=== PATIENT | male | born 1945 | race Caucasian/White ===

== ENCOUNTER 2020-05-14 09:37 | Outpatient (CLI) | payer MEDICARE, OTHER | END 2020-05-14 09:38 | disposition home or self-care (01) | LOC: NM 09:37 | PROVIDERS: ATTEND Psychiatry & Neurology Neurology | DX: G20 Parkinson's disease (principal) | CPT/HCPCS: 78803; A9584 ==

== ENCOUNTER 2021-09-01 09:20 | Outpatient (CLI) | payer MEDICARE, OTHER ==
[2021-09-01 10:33] LABS: Hemoglobin 14.7 g/dL (13.5-17.5); Mean Corpuscular HGB CONC 33.4 g/dL (32.0-36.0); Mean Corpuscular Hemoglobin 31.7 pg (27.0-33.0); Mean Corpuscular Volume 94.8 fl (81.2-95.1); Mean Platelet Volume 9.3 fl (7.4-10.4); Platelet Count 210 10x3/uL (150-450); RBC Distribution Width 12.2 % (11.5-14.5); Red Blood Cell (RBC) Count 4.64 10x6/uL (4.32-5.72); White Blood Cell (WBC) Count 7.7 10x3/uL (3.5-10.5)
[2021-09-01 10:42] LABS: Anion Gap 14 mmol/L (10-20); BUN (Urea Nitrogen) 16 mg/dL (8.4-25.7); Calc. Creatinine Clearance 0 mL/min (70-130); Calcium 9.4 mg/dL (7.8-10.44); Carbon Dioxide 27 mmol/L (23-31); Chloride 104 mmol/L (98-107); Estimated GFR 76; Glucose 98 mg/dL (83-110); Potassium 4.3 mmol/L (3.5-5.1); Sodium 141 mmol/L (136-145)
[2021-09-01 10:48] LABS: PTT 27.2 sec (22.0-33.0)
[2021-09-01 10:57] LABS: Bilirubin Neg (Negative); Blood, Urine 50 (Negative); Clarity Cloudy (Clear); Glucose, Urine (Dipstick) Normal (Negative); Ketone, Urine Negative (Negative); Leukocyte 500 (Negative); Nitrite Negative (Negative); Protein, Urine (Dipstick) 30 mg/dl (Neg-Trace); Specific Gravity, Urine 1.015 (1.002-1.036); Urobilinogen Normal mg/dL (Less than 2)
[2021-09-01 11:27] LABS: Squamous Epithelial 0-3 HPF (0-3); WBC/HPF 21-50 HPF (0-3)
[2021-09-01 11:28] LABS: Bacteria/HPF 2+ HPF (None Seen)
== END 2021-09-01 09:21 | disposition home or self-care (01) ==
LOC: LABBT 09:20
PROVIDERS: ATTEND Urology
DX: Z01.818 Encounter for other preprocedural examination (principal); N20.0 Calculus of kidney; N35.916 Unspecified urethral stricture, male, overlapping sites; K59.09 Other constipation; N32.81 Overactive bladder; G20 Parkinson's disease; Z20.822 Contact with and (suspected) exposure to COVID-19; N39.41 Urge incontinence; N47.2 Paraphimosis
CPT/HCPCS: 80048; 81001; 85027; 85610; 85730; 87077; 87086; 87186; 87811; 93005; 93010

== ENCOUNTER 2021-09-03 08:17 | Day surgery (SDC) | payer MEDICARE, OTHER ==
[2021-09-02 10:58] VITALS: BMI 31.4
[2021-09-03] MEDS ORDERED: Fentanyl 100 MCG/2 ML VIAL ONE (09:45)
[2021-09-03] MEDS ORDERED: SUGAMMADEX SODIUM 200 MG/2 ML VIAL ONE (09:45)
[2021-09-03] MEDS ORDERED: Iopamidol 30 ML ONE (09:47)
[2021-09-03] MEDS ORDERED: Levofloxacin 500 mg/D5W 100 ml Premix Bag ONE (09:51)
[2021-09-03] MEDS ORDERED: Dexamethasone 20 MG/5 ML VIAL ONE (10:02)
[2021-09-03] MEDS ORDERED: Lidocaine 1% PF 5 ML VIAL ONE (10:02)
[2021-09-03] MEDS ORDERED: Ondansetron PF 4 MG/2 ML Vial ONE (10:02)
[2021-09-03] MEDS ORDERED: PROPOFOL 200 MG/20 ML VIAL ONE (10:02)
[2021-09-03] MEDS ORDERED: Rocuronium Bromide 10 MG/ML (10ML VIAL) ONE (10:02)
[2021-09-03] MEDS ORDERED: PACU-Morphine 4MG/ML VIAL SLOW IVP PRN (10:23)
[2021-09-03] MEDS ORDERED: Promethazine HCl 25 MG/ML VIAL IVPB PRN (10:23)
[2021-09-03] MEDS ORDERED: B & O ONE (11:10)
== END 2021-09-03 15:58 ==
LOC: SDC 08:17
PROVIDERS: ATTEND Urology
PROC: 0TC38ZZ Extirpation of Matter from Right Kidney Pelvis, Via Natural or Artificial Opening Endoscopic (ICD-10-PCS; principal; 2021-09-03)
PROC: 0T768DZ Dilation of Right Ureter with Intraluminal Device, Via Natural or Artificial Opening Endoscopic (ICD-10-PCS; 2021-09-03)
DX: N20.0 Calculus of kidney (principal); N35.913 Unspecified membranous urethral stricture, male; G47.30 Sleep apnea, unspecified; G20 Parkinson's disease; F02.80 Dementia in other diseases classified elsewhere, unspecified severity, without behavioral disturbance, psychotic disturbance, mood disturbance, and anxiety; Z79.899 Other long term (current) drug therapy
CPT/HCPCS: 52356; 74420; 82365; C2617; 88300; J1956; J3010; Q9967

== ENCOUNTER 2022-05-01 21:12 | Observation (INO) | payer MEDICARE, OTHER ==
[2022-05-01 22:31] LABS: #Basophils 0.1 thou/uL (0.0-0.2); #Eosinphils 0.2 thou/uL (0.0-0.7); #Lymphocytes 1.9 thou/uL (1.20-3.40); #Monocytes 0.4 thou/uL (0.11-0.59); #Neutrophils 4.5 thou/uL (1.40-6.50); %Basophils 0.8 % (0.0-1.0); %Eosinophils 2.2 % (0.0-10.0); %Monocytes 5.4 % (0.0-10.0); %Neutrophils 64.5 % (42.0-75.0); Hemoglobin 13.9 g/dL (14.0-18.0); Mean Corpuscular HGB CONC 33.7 g/dL (32.0-36.0); Mean Corpuscular Hemoglobin 33.7 pg (27.0-31.0); Mean Corpuscular Volume 99.9 fl (78.0-98.0); Mean Platelet Volume 7.1 fL (7.4-10.4); Platelet Count 204 10x3/uL (130-400); RBC Distribution Width 11.4 % (11.5-14.5); Red Blood Cell (RBC) Count 4.14 mill/uL (4.70-6.10); White Blood Cell (WBC) Count 6.9 10x3/uL (4.8-10.8)
[2022-05-01 22:55] LABS: ALT (SGPT) 7 U/L (8-55); AST (SGOT) 18 U/L (5-34); Albumin 4.1 g/dL (3.4-4.8); Alkaline Phosphatase 71 U/L (40-110); Anion Gap 10 mmol/L (10-20); BUN (Urea Nitrogen) 19 mg/dL (8.4-25.7); Bilirubin, Total 0.6 mg/dL (0.2-1.2); Calc. Creatinine Clearance 0 mL/min (70-130); Calcium 9.1 mg/dL (7.8-10.44); Carbon Dioxide 31 mmol/L (23-31); Chloride 102 mmol/L (98-107); Estimated GFR 76; Globulin 2.5 g/dL (2.4-3.5); Glucose 121 mg/dL (83-110); Potassium 3.4 mmol/L (3.5-5.1); Protein, Total 6.6 g/dL (5.8-8.1); Sodium 140 mmol/L (136-145)
[2022-05-02] MEDS ORDERED: Ondansetron ODT 4 MG TAB PO PRN (01:03)
[2022-05-02] MEDS ORDERED: Acetaminophen 650 MG Suppository PR PRN (01:03)
[2022-05-02] MEDS ORDERED: Ondansetron PF 4 MG/2 ML Vial IVP PRN (01:03)
[2022-05-02] MEDS ORDERED: Nitroglycerin 0.4 MG TAB (25 Tab Bottle) SL PRN (01:03)
[2022-05-02] MEDS ORDERED: Acetaminophen 325 MG TAB PO PRN (01:03)
[2022-05-02 04:00] VITALS: BMI 29.5
[2022-05-02 06:07] LABS: #Eosinphils 0.2 thou/uL (0.0-0.7); #Lymphocytes 2.5 thou/uL (1.20-3.40); #Monocytes 0.4 thou/uL (0.11-0.59); #Neutrophils 3.4 thou/uL (1.40-6.50); %Basophils 0.1 % (0.0-1.0); %Lymphocytes 38.7 % (21.0-51.0); %Monocytes 5.5 % (0.0-10.0); %Neutrophils 52.6 % (42.0-75.0); Hemoglobin 13.4 g/dL (14.0-18.0); Mean Corpuscular HGB CONC 34.6 g/dL (32.0-36.0); Mean Corpuscular Hemoglobin 34.6 pg (27.0-31.0); Mean Corpuscular Volume 99.9 fl (78.0-98.0); Mean Platelet Volume 7.1 fL (7.4-10.4); Platelet Count 187 10x3/uL (130-400); RBC Distribution Width 11.3 % (11.5-14.5); Red Blood Cell (RBC) Count 3.87 mill/uL (4.70-6.10); White Blood Cell (WBC) Count 6.5 10x3/uL (4.8-10.8)
[2022-05-02 06:16] LABS: Anion Gap 13 mmol/L (10-20); BUN (Urea Nitrogen) 17 mg/dL (8.4-25.7); Calc. Creatinine Clearance 89 mL/min (70-130); Calcium 8.4 mg/dL (7.8-10.44); Carbon Dioxide 19 mmol/L (23-31); Chloride 109 mmol/L (98-107); Estimated GFR 91; Glucose 96 mg/dL (83-110); Magnesium 1.8 mg/dL (1.6-2.6); Potassium 3.2 mmol/L (3.5-5.1); Sodium 138 mmol/L (136-145)
[2022-05-02 06:21] LABS: Troponin I Less than 0.010 ng/mL (< 0.028)
[2022-05-02 07:00] LABS: Magnesium 1.9 mg/dL (1.6-2.6)
[2022-05-02] MEDS ORDERED: Potassium Chloride 20 MEQ TAB PO SCH (07:45)
[2022-05-02] MEDS ORDERED: Magnesium 2 GM/50 ML(in water) 2 GM in Premix Bag 1 BAG IVPB SCH (08:00)
[2022-05-02] MEDS ORDERED: Rasagiline Mesylate 1 MG Tab DT SCH (09:00)
[2022-05-02] MEDS ORDERED: Non-Formulary Item 1 EACH (Rasagiline Mesylate 1 MG Tab) PO SCH (09:00)
[2022-05-02] MEDS ORDERED: Iopamidol-370 76% 500 ML 1 ML ONE (09:31)
[2022-05-02] MEDS ORDERED: ADENOSINE 60 MG/20 ML VIAL ONE (09:42)
[2022-05-02] MEDS: Carbidopa/Levodopa 25-100 mg Tablet PO SCH ×5 (09:46→23:43)
[2022-05-02] MEDS: Entacapone 200 mg Tablet PO SCH ×5 (09:46→23:43)
[2022-05-02] MEDS: rOPINIRole HCl 2 MG TAB PO SCH ×3 (09:46→21:18)
[2022-05-02] MEDS: Aspirin Chewable 81 MG TAB PO SCH (09:47)
[2022-05-02 18:12] LABS: INR-International Normal Ratio 1.1; Prothrombin Time 14.9 sec (12.0-14.7)
[2022-05-02 18:13] LABS: PTT 40.4 sec (22.9-36.1)
[2022-05-02 18:14] LABS: D-Dimer Test 0.95 *mcg/mL (0.27-0.43)
[2022-05-02] MEDS ORDERED: clonazePAM 0.5 MG TAB PO SCH ×2 (21:00)
[2022-05-02] MEDS ORDERED: Donepezil HCl 5 MG TAB PO SCH (21:00)
[2022-05-03 04:48] LABS: #Eosinphils 0.2 thou/uL (0.0-0.7); #Monocytes 0.3 thou/uL (0.11-0.59); #Neutrophils 3.3 thou/uL (1.40-6.50); %Basophils 0.5 % (0.0-1.0); %Eosinophils 3.2 % (0.0-10.0); %Lymphocytes 34.7 % (21.0-51.0); %Monocytes 5.2 % (0.0-10.0); %Neutrophils 56.4 % (42.0-75.0); Hemoglobin 13.2 g/dL (14.0-18.0); Mean Corpuscular HGB CONC 34.8 g/dL (32.0-36.0); Mean Corpuscular Hemoglobin 34.7 pg (27.0-31.0); Mean Corpuscular Volume 99.7 fl (78.0-98.0); Mean Platelet Volume 7.1 fL (7.4-10.4); Platelet Count 175 10x3/uL (130-400); RBC Distribution Width 11.2 % (11.5-14.5); White Blood Cell (WBC) Count 5.8 10x3/uL (4.8-10.8)
[2022-05-03 05:17] LABS: Anion Gap 12 mmol/L (10-20); BUN (Urea Nitrogen) 16 mg/dL (8.4-25.7); Calc. Creatinine Clearance 83 mL/min (70-130); Calcium 8.3 mg/dL (7.8-10.44); Carbon Dioxide 25 mmol/L (23-31); Cardiac Risk 4.4 (Less than 4.5); Chloride 106 mmol/L (98-107); Cholesterol 123 mg/dl (< 200 Desired); Estimated GFR 89; Glucose 107 mg/dL (83-110); HDL Cholesterol 28 mg/dL (>60 Neg Risk); LDL Cholesterol, Calculated 77 mg/dL; Potassium 3.6 mmol/L (3.5-5.1); Sodium 139 mmol/L (136-145); Triglycerides 89 mg/dL (Less than 150)
[2022-05-03] MEDS: Carbidopa/Levodopa 25-100 mg Tablet PO SCH ×3 (09:07→16:55)
[2022-05-03] MEDS: Aspirin Chewable 81 MG TAB PO SCH (09:07)
[2022-05-03] MEDS: Entacapone 200 mg Tablet PO SCH ×3 (09:07→16:55)
[2022-05-03] MEDS: rOPINIRole HCl 2 MG TAB PO SCH ×2 (09:08→14:16)
[2022-05-03 12:33] VITALS: BP 128/70; TEMP 97.7
[2022-05-03] MEDS ORDERED: Atorvastatin Calcium 10 MG TAB PO SCH (21:00)
== END 2022-05-03 17:00 ==
LOC: ERS 21:12 → NEURO 05-02 00:10 → 2NO 05-02 16:19
PROVIDERS: ADMIT Internal Medicine; ATTEND Internal Medicine
DX: R07.89 Other chest pain (principal); E87.6 Hypokalemia; G20 Parkinson's disease; F02.80 Dementia in other diseases classified elsewhere, unspecified severity, without behavioral disturbance, psychotic disturbance, mood disturbance, and anxiety; I45.10 Unspecified right bundle-branch block; R94.39 Abnormal result of other cardiovascular function study; Z87.442 Personal history of urinary calculi; Z79.899 Other long term (current) drug therapy; Z20.822 Contact with and (suspected) exposure to COVID-19
CPT/HCPCS: 71045; 71275; 78452; 80048 ×2; 80053; 80061; 83690; 83735 ×2; 83880; 84484 ×2; 85025 ×3; 85379; 85610; 85730; 86850; 86900; 86901; 93005; 93017; 93970; 94760 ×2; 97116; A9500; U0003; U0005; 36415; 96372; 96374; G0378; J0153; J1650; J3475; Q9967

== ENCOUNTER 2022-11-08 09:26 | Emergency (ER) | payer MEDICARE, OTHER ==
[2022-11-08 10:36] LABS: #Eosinphils 0.3 thou/uL (0.0-0.7); #Monocytes 0.4 thou/uL (0.11-0.59); #Neutrophils 5.6 thou/uL (1.40-6.50); %Basophils 0.2 % (0.0-1.0); %Eosinophils 2.9 % (0.0-10.0); %Lymphocytes 26.8 % (21.0-51.0); %Monocytes 4.9 % (0.0-10.0); Hemoglobin 12.9 g/dL (14.0-18.0); Mean Corpuscular HGB CONC 33.9 g/dL (32.0-36.0); Mean Corpuscular Hemoglobin 33.1 pg (27.0-31.0); Mean Corpuscular Volume 97.4 fl (78.0-98.0); Mean Platelet Volume 9.3 fL (7.4-10.4); Platelet Count 192 10x3/uL (130-400); RBC Distribution Width 12.4 % (11.5-14.5); White Blood Cell (WBC) Count 8.6 10x3/uL (4.8-10.8)
[2022-11-08 10:59] LABS: ALT (SGPT) Less than 7 U/L (8-55); AST (SGOT) 14 U/L (5-34); Albumin 4.4 g/dL (3.4-4.8); Alkaline Phosphatase 86 U/L (40-110); Anion Gap 10 mmol/L (10-20); BUN (Urea Nitrogen) 19 mg/dL (8.4-25.7); Bilirubin, Total 0.6 mg/dL (0.2-1.2); Calc. Creatinine Clearance 0 mL/min (70-130); Calcium 9.5 mg/dL (7.8-10.44); Carbon Dioxide 32 mmol/L (23-31); Chloride 101 mmol/L (98-107); Estimated GFR 78; Globulin 2.5 g/dL (2.4-3.5); Glucose 109 mg/dL (83-110); Potassium 3.1 mmol/L (3.5-5.1); Protein, Total 6.9 g/dL (5.8-8.1); Sodium 140 mmol/L (136-145)
== END 2022-11-08 12:05 ==
LOC: ERS 09:26
DX: S06.0XAA Concussion with loss of consciousness status unknown, initial encounter (principal); W19.XXXA Unspecified fall, initial encounter
CPT/HCPCS: 36415; 70450; 71045; 72100; 80053; 85025; 93005

== ENCOUNTER 2022-12-24 12:52 | Emergency (ER) | payer OTHER ==
[2022-12-24] MEDS ORDERED: Acetaminophen 500 MG TAB ONE (15:23)
[2022-12-24 15:48] LABS: Bacteria/HPF None Seen HPF (None Seen); Bilirubin Negative (Negative); Blood, Urine Negative (Negative); CAUTI Indications for Culture Dysuria,urgency,freq; Clarity Clear (Clear); Glucose, Urine (Dipstick) Normal (Negative); Ketone, Urine Negative (Negative); Leukocyte Negative Leu/uL (Negative); Nitrite Negative (Negative); Protein, Urine (Dipstick) Negative (Neg-Trace); RBC/HPF 0-3 HPF (0-3); Specific Gravity, Urine 1.006 (1.002-1.036); Squamous Epithelial 0-3 HPF (0-3); Urobilinogen Normal mg/dL (Less than 2); WBC/HPF 0-3 HPF (0-3); pH, Urine 6.5 (5.0-9.0)
[2022-12-24 15:50] LABS: Urine Culture Reflex No No
[2022-12-24 16:12] LABS: SARS-CoV-2 NAA Rapid Test Not Detected (NotDetected)
== END 2022-12-24 16:30 | disposition home or self-care (01) ==
LOC: ERS 12:52
DX: R50.9 Fever, unspecified (principal); R51.9 Headache, unspecified; Z20.822 Contact with and (suspected) exposure to COVID-19
CPT/HCPCS: 70450; 72125; 81001

== ENCOUNTER 2023-05-01 13:34 | Inpatient (IN) | payer MEDICARE, MEDICAID ==
[2023-05-01] MEDS ORDERED: Meclizine HCl 25 MG TAB ONE (14:14)
[2023-05-01 14:41] LABS: #Eosinphils 0.1 thou/uL (0.0-0.7); #Monocytes 0.3 thou/uL (0.11-0.59); #Neutrophils 3.7 thou/uL (1.40-6.50); %Basophils 0.4 % (0.0-1.0); %Eosinophils 1.6 % (0.0-10.0); %Lymphocytes 24.4 % (21.0-51.0); %Monocytes 4.9 % (0.0-10.0); %Neutrophils 68.5 % (42.0-75.0); Hematocrit 32.6 % (42.0-52.0); Hemoglobin 11.2 g/dL (14.0-18.0); Mean Corpuscular HGB CONC 34.4 g/dL (32.0-36.0); Mean Corpuscular Hemoglobin 34.3 pg (27.0-31.0); Mean Corpuscular Volume 99.7 fl (78.0-98.0); Mean Platelet Volume 9.3 fL (7.4-10.4); Platelet Count 156 10x3/uL (130-400); RBC Distribution Width 12.4 % (11.5-14.5); Red Blood Cell (RBC) Count 3.27 mill/uL (4.70-6.10); White Blood Cell (WBC) Count 5.5 10x3/uL (4.8-10.8)
[2023-05-01 15:04] LABS: ALT (SGPT) Less than 7 U/L (8-55); AST (SGOT) 15 U/L (5-34); Albumin 3.7 g/dL (3.4-4.8); Alkaline Phosphatase 87 U/L (40-110); Anion Gap 10 mmol/L (10-20); BUN (Urea Nitrogen) 19 mg/dL (8.4-25.7); Bilirubin, Total 0.7 mg/dL (0.2-1.2); Calc. Creatinine Clearance 0 mL/min (70-130); Calcium 8.5 mg/dL (7.8-10.44); Carbon Dioxide 28 mmol/L (23-31); Chloride 103 mmol/L (98-107); Estimated GFR 76; Globulin 2.1 g/dL (2.4-3.5); Glucose 153 mg/dL (83-110); Potassium 3.2 mmol/L (3.5-5.1); Protein, Total 5.8 g/dL (5.8-8.1); Sodium 138 mmol/L (136-145)
[2023-05-01 15:09] LABS: Troponin I 0.015 ng/mL (< 0.028)
[2023-05-01 16:15] LABS: Bacteria/HPF None Seen HPF (None Seen); Bilirubin Negative (Negative); Blood, Urine Negative (Negative); CAUTI Indications for Culture Alt mental st,lethar; Clarity Clear (Clear); Glucose, Urine (Dipstick) Normal (Negative); Ketone, Urine Negative (Negative); Leukocyte Negative Leu/uL (Negative); Nitrite Negative (Negative); Protein, Urine (Dipstick) Negative (Neg-Trace); RBC/HPF None Seen HPF (0-3); Specific Gravity, Urine 1.017 (1.002-1.036); Squamous Epithelial 0-3 HPF (0-3); Urobilinogen Normal mg/dL (Less than 2); WBC/HPF 0-3 HPF (0-3); pH, Urine 6.5 (5.0-9.0)
[2023-05-01 16:17] LABS: Urine Culture Reflex No No
[2023-05-01] MEDS ORDERED: Ondansetron PF 4 MG/2 ML Vial IVP PRN (16:18)
[2023-05-01 17:39] LABS: CK (CPK) 144 U/L (30-200); Cardiac Risk 4.5 (Less than 4.5); Cholesterol 130 mg/dl (< 200 Desired); HDL Cholesterol 29 mg/dL (>60 Neg Risk); LDL Cholesterol, Calculated 78 mg/dL; Magnesium 2.2 mg/dL (1.6-2.6); Triglycerides 113 mg/dL (Less than 150)
[2023-05-01 18:31] LABS: Troponin I Less than 0.010 ng/mL (< 0.028)
[2023-05-01 20:33] VITALS: BMI 29.1
[2023-05-01] MEDS: Potassium Chloride 10 MEQ in Premix 1 BAG IVPB SCH (20:41)
[2023-05-01 21:48] LABS: Troponin I Less than 0.010 ng/mL (< 0.028)
[2023-05-01] MEDS: Sodium Chloride 0.9% 1,000 ML IV SCH (22:30)
[2023-05-01] MEDS: Famotidine/PF 20 mg/2ml Vial SLOW IVP SCH (22:30)
[2023-05-01] MEDS: Acetaminophen 325 MG TAB PO PRN (22:31)
[2023-05-02 05:38] LABS: #Eosinphils 0.2 thou/uL (0.0-0.7); #Monocytes 0.3 thou/uL (0.11-0.59); #Neutrophils 3.1 thou/uL (1.40-6.50); %Basophils 0.3 % (0.0-1.0); %Eosinophils 2.6 % (0.0-10.0); %Lymphocytes 37.1 % (21.0-51.0); %Monocytes 5.8 % (0.0-10.0); %Neutrophils 53.9 % (42.0-75.0); Hemoglobin 12.6 g/dL (14.0-18.0); Mean Corpuscular HGB CONC 34.1 g/dL (32.0-36.0); Mean Corpuscular Hemoglobin 33.6 pg (27.0-31.0); Mean Corpuscular Volume 98.7 fl (78.0-98.0); Mean Platelet Volume 9.8 fL (7.4-10.4); Platelet Count 188 10x3/uL (130-400); RBC Distribution Width 12.2 % (11.5-14.5); Red Blood Cell (RBC) Count 3.75 mill/uL (4.70-6.10); White Blood Cell (WBC) Count 5.8 10x3/uL (4.8-10.8)
[2023-05-02 06:29] LABS: ALT (SGPT) 18 U/L (8-55); AST (SGOT) 16 U/L (5-34); Albumin 3.6 g/dL (3.4-4.8); Alkaline Phosphatase 87 U/L (40-110); Anion Gap 11 mmol/L (10-20); BUN (Urea Nitrogen) 16 mg/dL (8.4-25.7); Bilirubin, Total 0.7 mg/dL (0.2-1.2); Calc. Creatinine Clearance 78 mL/min (70-130); Calcium 8.7 mg/dL (7.8-10.44); Carbon Dioxide 26 mmol/L (23-31); Chloride 107 mmol/L (98-107); Estimated GFR 86; Globulin 2.2 g/dL (2.4-3.5); Glucose 85 mg/dL (83-110); Potassium 3.6 mmol/L (3.5-5.1); Protein, Total 5.8 g/dL (5.8-8.1); Sodium 140 mmol/L (136-145)
[2023-05-02] MEDS: Enoxaparin 40 MG (0.4 mL) SYRINGE SC SCH (08:16)
[2023-05-02] MEDS ORDERED: Promethazine 25 MG TAB PO PRN (15:49)
[2023-05-02] MEDS: Entacapone 200 mg Tablet PO SCH (16:31)
[2023-05-02] MEDS: Carbidopa/Levodopa 25-100 mg Tablet PO SCH (16:31)
[2023-05-02] MEDS: Lactated Ringer's 1,000 ML IV SCH (16:31)
[2023-05-02] MEDS: QUEtiapine 25 MG TAB PO SCH (20:42)
[2023-05-02] MEDS: Trospium 20 MG TAB PO SCH (20:42)
[2023-05-02] MEDS: rOPINIRole HCl 2 MG TAB PO SCH (20:42)
[2023-05-02] MEDS: Donepezil HCl 5 MG TAB PO SCH (20:42)
[2023-05-02] MEDS: Senokot S 8.6-50 MG TAB PO SCH (20:42)
[2023-05-03] MEDS: Cholecalciferol 1,000 UNITS (25 MCG) TAB PO SCH (08:11)
[2023-05-03] MEDS: Tamsulosin HCl 0.4 MG CAP PO SCH (08:11)
[2023-05-03] MEDS: Polyethylene Glycol 3350 17 GM Packet PO SCH (08:12)
[2023-05-03] MEDS: QUEtiapine 25 MG TAB PO SCH (08:12)
[2023-05-03] MEDS: FLUoxetine HCl 20 MG CAP PO SCH (08:12)
[2023-05-03] MEDS ORDERED: Rasagiline Mesylate 1 MG Tab PO SCH (09:00)
[2023-05-03 09:40] LABS: Anion Gap 9 mmol/L (10-20); BUN (Urea Nitrogen) 13 mg/dL (8.4-25.7); Calc. Creatinine Clearance 93 mL/min (70-130); Calcium 8.4 mg/dL (7.8-10.44); Carbon Dioxide 26 mmol/L (23-31); Chloride 106 mmol/L (98-107); Estimated GFR 92; Glucose 100 mg/dL (83-110); Magnesium 1.9 mg/dL (1.6-2.6); Potassium 3.5 mmol/L (3.5-5.1); Sodium 137 mmol/L (136-145)
[2023-05-04 04:19] LABS: Anion Gap 8 mmol/L (10-20); BUN (Urea Nitrogen) 13 mg/dL (8.4-25.7); Calc. Creatinine Clearance 95 mL/min (70-130); Calcium 8.7 mg/dL (7.8-10.44); Carbon Dioxide 26 mmol/L (23-31); Chloride 105 mmol/L (98-107); Estimated GFR 93; Glucose 114 mg/dL (83-110); Potassium 3.3 mmol/L (3.5-5.1); Sodium 136 mmol/L (136-145)
[2023-05-04] MEDS ORDERED: Electrolyte Replacement Protocol 1 EACH FS SCH (12:15)
[2023-05-04] MEDS: Potassium Chloride 20 MEQ TAB PO SCH (12:47)
[2023-05-04] MEDS: Magnesium 2 GM/50 ML(in water) 2 GM in Premix 1 BAG IVPB SCH (12:47)
[2023-05-05 08:15] VITALS: TEMP 97.7
[2023-05-05 11:34] VITALS: BP 143/78
== END 2023-05-05 14:22 | DRG 312 ==
LOC: ERS 13:34 → 2NO 19:57
PROVIDERS: ADMIT Emergency Medicine; ATTEND Family Medicine
DX: I95.1 Orthostatic hypotension (principal); R00.1 Bradycardia, unspecified; Z66 Do not resuscitate; I10 Essential (primary) hypertension; E78.5 Hyperlipidemia, unspecified; G20.A1 Parkinson's disease without dyskinesia, without mention of fluctuations; F02.80 Dementia in other diseases classified elsewhere, unspecified severity, without behavioral disturbance, psychotic disturbance, mood disturbance, and anxiety; Z79.899 Other long term (current) drug therapy; Z79.82 Long term (current) use of aspirin; Z90.49 Acquired absence of other specified parts of digestive tract
CPT/HCPCS: 36415; 70450; 71045; 80048; 80053; 80061; 81001; 82550; 83735; 84145; 84443; 84484; 85025; 93005; 93306; 94760; J1650; J3475; J3480; J7050; J7120; S0028

== ENCOUNTER 2024-03-11 18:49 | Emergency (ER) | payer MEDICARE, OTHER, MEDICAID | END 2024-03-11 21:18 | LOC: ERS 18:49 | DX: S16.1XXA Strain of muscle, fascia and tendon at neck level, initial encounter (principal); S70.02XA Contusion of left hip, initial encounter; I10 Essential (primary) hypertension; W19.XXXA Unspecified fall, initial encounter | CPT/HCPCS: 70450; 72125; 72170 ==